=== PATIENT | female | born 1965 | race American Indian/Alaskan Native ===

== ENCOUNTER 2017-04-24 11:36 | Emergency (ER) | payer BC ==
[2017-04-24 11:44] VITALS: BP 166/97
[2017-04-24] MEDS ORDERED: MOTRIN PO ONE (13:47)
--- NOTE | 2017-04-24 14:01 | Emergency Department Report ---
ED Fall HPI - General Chief Complaint: Fall Stated Complaint: FALL Time Seen by Provider: 04/24/17 12:02 Source: patient Mode of arrival: Ambulatory - History of Present Illness Initial Comments: This is a 51-year-old obese female nontoxic, well nourished in appearance, no acute signs of distress presents to the ED with c/o of fall from standstill this morning around 9 AM. Patient stated she was walking outside and tripped over the rock and landed on the right side of her body. Patient stated she landed on her right shoulder, arm, and tried to break a fall with her bilateral wrist and hand. Patient stated she also hit her right upper rib region on the rock and describes pain as aching with level of8/10. Patient stated has low back and cervical spinal pain. Patient denies any head trauma or LOC. Denies syncope. Denies any abdominal pain, nausea, vomiting, chest pain, bladder or bowel instability, shortness of breathe, difficulty breaking, headache, stiff neck, blurry vision, numbness or tingling. Denies any allergies or PMH besides hypertension. MD Complaint: fall -: This morning Fall From: standing When Fall Occurred: 4-6 hours [employer] Fall Witnessed: yes, by family () Place Fall Occurred: street Loss of Consciousness: none Prolonged Down Time?: no Symptoms Prior to Fall: none Severity: mild Severity scale (0 -10): 8 Quality: aching Context: tripped/slipped Associated Symptoms: neck pain. denies: headache, numbness, weakness, chest paint, shortness of breath, abdominal pain, hematuria, unable to walk, lightheaded, vertigo, confusion - Related Data Previous Rx's Medication Instructions Recorded Last Taken Type Ibuprofen [Motrin] 600 mg PO Q8H PRN #30 tablet 04/24/17 Unknown Rx Allergies Allergy/AdvReac Type Severity Reaction Status Date / Time No Known Allergies Allergy Unverified 04/24/17 11:39 ED Review of Systems ROS: Stated complaint: FALL Other details as noted in HPI Constitutional: denies: chills, fever Eyes: denies: eye pain, eye discharge, vision change ENT: denies: ear pain, throat pain Respiratory: denies: cough, shortness of breath, wheezing Cardiovascular: denies: chest pain, palpitations Endocrine: no symptoms reported Gastrointestinal: denies: abdominal pain, nausea, diarrhea Genitourinary: denies: urgency, dysuria, discharge Musculoskeletal: back pain, arthralgia. denies: joint swelling Skin: denies: rash, lesions Neurological: denies: headache, weakness, paresthesias Psychiatric: denies: anxiety, depression Hematological/Lymphatic: denies: easy bleeding, easy bruising ED Past Medical Hx - Past Medical History Previous Medical History?: Yes Hx Hypertension: Yes - Surgical History Past Surgical History?: No - Social History Smoking Status: Never Smoker Substance Use Type: Alcohol - Medications Home Medications: Home Medications Medication Instructions Recorded Confirmed Last Taken Type Ibuprofen [Motrin] 600 mg PO Q8H PRN #30 tablet 04/24/17 Unknown Rx ED Physical Exam - General Limitations: No Limitations General appearance: alert, in no apparent distress - Head Head exam: Present: atraumatic, normocephalic, normal inspection - Eye Eye exam: Present: normal appearance, PERRL, EOMI. Absent: scleral icterus, conjunctival injection, nystagmus, periorbital swelling, periorbital tenderness Pupils: Present: normal accommodation - ENT ENT exam: Present: normal exam, normal orophraynx, mucous membranes moist, TM's normal bilaterally, normal external ear exam - Neck Neck exam: Present: normal inspection, full ROM. Absent: tenderness, meningismus, lymphadenopathy, thyromegaly - Respiratory Respiratory exam: Present: normal lung sounds bilaterally, chest wall tenderness (right lateral upper rib region). Absent: respiratory distress, wheezes, rales, rhonchi, stridor, accessory muscle use, decreased breath sounds , prolonged expiratory - Cardiovascular Cardiovascular Exam: Present: regular rate, normal rhythm, normal heart sounds. Absent: bradycardia, tachycardia, irregular rhythm, systolic murmur, diastolic murmur, rubs, gallop - GI/Abdominal GI/Abdominal exam: Present: soft, normal bowel sounds. Absent: distended, tenderness, guarding, rebound, rigid, diminished bowel sounds, organomegaly ( liver/spleen) - Rectal Rectal exam: Present: deferred - Extremities Exam Extremities exam: Present: normal inspection, full ROM, tenderness, normal capillary refill. Absent: pedal edema, joint swelling, calf tenderness - Expanded Upper Extremity Exam Right General: Present: normal inspection Shoulder Exam: Present: normal inspection, full ROM, tenderness. Absent: swelling, abrasion, laceration, ecchymosis, deformity, crepidus, dislocation, erythema, tenderness over AC joint Upper Arm exam: Present: normal inspection, full ROM, tenderness, ecchymosis. Absent: swelling, abrasion, laceration, deformity, crepidus, dislocation, erythema Elbow exam: Present: normal inspection, full ROM, tenderness, ecchymosis. Absent: swelling, abrasion, laceration, deformity, crepidus, dislocation, erythema, effusion, pain w/ pronation/supination, tenderness over radial head Forearm Wrist exam: Present: normal inspection, full ROM, tenderness, ecchymosis. Absent: swelling, abrasion, laceration, deformity, crepidus, dislocation, erythema, tenderness over anatomical snuff box, pain with axial thumb loading Hand Wrist exam: Present: normal inspection, full ROM, tenderness. Absent: swelling, abrasion, laceration, ecchymosis, deformity, crepidus, dislocation, erythema, amputation, nail avulsion, subungual hematoma Neuro motor exam: Present: wrist extension intact, thumb opposition intact, thumb IP flexion intact, thumb adduction intact, fingers 2-5 abduction intact Neurosensory exam: Present: 2-point discrimination, radial nerve intact, ulnar nerve intact, median nerve intact Vascular: Present: vascular compromise, normal capillary refill, radial pulse, brachial pulse, ulnar pulse - Expanded Lower Extremity Exam Right Hip exam: Present: normal inspection, full ROM, tenderness, ecchymosis, external rotation, internal rotation, pelvic stability. Absent: swelling, abrasion, laceration, deformity, crepidus, dislocation, erythema, shortening Upper Leg exam: Present: normal inspection, full ROM. Absent: tenderness, swelling, abrasion, laceration, ecchymosis, deformity, crepidus, dislocation, erythema Knee exam: Present: normal inspection, full ROM, full knee extension. Absent: tenderness, swelling, abrasion, laceration, ecchymosis, deformity, crepidus, dislocation, erythema, effusion, pain w/ pronation/supination, posterior draw sign, pain/laxity with valgus, pain/laxity with varus Lower Leg exam: Present: normal inspection, full ROM. Absent: tenderness, swelling, abrasion, laceration, ecchymosis, deformity, crepidus, dislocation, erythema, palpable cord, Manish's sign Ankle exam: Present: normal inspection, full ROM. Absent: tenderness, swelling , abrasion, laceration, ecchymosis, deformity, crepidus, dislocation, erythema, anterior draw sign Foot/Toe exam: Present: normal inspection, full ROM. Absent: tenderness, swelling, abrasion, laceration, ecchymosis, deformity, crepidus, dislocation, erythema, amputation, puncture wound, foreign body, calcaneal tenderness, tenderness at base of 5th metatarsal, nail avulsion, subungual hematoma Neuro vascular tendon exam: Present: no vascular compromise. Absent: pulse deficit, abnormal cap refill, motor deficit, sensory deficit, tendon deficit, extremity cold to touch, pallor, abnormal 2-point discrimination, decreased fine /light touch, foot drop, peroneal nerve deficit, significant pain with passive ROM of distal joint Gait: Positive: observed and limited by pain - Back Exam Back exam: Present: normal inspection, full ROM, paraspinal tenderness ( cerivcal and lumbar), vertebral tenderness (cerivcal and lumbar). Absent: CVA tenderness (R), CVA tenderness (L), muscle spasm, rash noted - Expanded Back Exam Expanded Back exam: Present: normal rectal tone (as per patient). Absent: saddle anesthesia Back exam: Negative Straight Leg Raising: Left, Right - Neurological Exam Neurological exam: Present: alert, oriented X3 - Psychiatric Psychiatric exam: Present: normal affect, normal mood - Skin Skin exam: Present: warm, dry, intact, normal color. Absent: rash - Other Other exam information: No bladder or bowel instability. No joint swelling or redness. No deformity. No numbness, no tingling. No abdominal distention. ED Course Vital Signs 04/24/17 11:39 Temperature 98.4 F Pulse Rate 66 Respiratory 20 Rate Blood Pressure 166/97 O2 Sat by Pulse 100 Oximetry - Reevaluation(s) Reevaluation #1: 04/24/17 14:05 Patient is speaking in full sentences with no signs of distress noted. ED Medical Decision Making - Medical Decision Making This is a 51-year-old female that presents with multiple complaints of fall. Patient is stable and was examined by me. Multiple xrays and CT obtained and dictated by radiologist with normal exam besides enlarged thyroid. Upon examination there is no spleen/liver tenderness. No abdominal pain or tenderness or ecchymosis present. Patient was notified of imaging results with no questionable by the patient. Patient was instructed Follow-up with a primary care doctor in 3-5 days or if symptoms worsen and continue return to emergency room as soon as possible. At time time of discharge, the patient does not seem toxic or ill in appearance. No acute signs of distress noted. Patient agrees to discharge treatment plan of care. No further questions noted by the patient. Critical care attestation.: If time is entered above; I have spent that time in minutes in the direct care of this critically ill patient, excluding procedure time. ED Disposition Clinical Impression: Fall Qualifiers: Encounter type: initial encounter Qualified Code(s): W19.XXXA - Unspecified fall, initial encounter Disposition: TO HOME OR SELFCARE Is pt being admited?: No Does the pt Need Aspirin: No Condition: Stable Instructions: Ibuprofen (By mouth), RICE Therapy (ED), Fall Prevention (ED) Additional Instructions: Follow-up with a primary care doctor in 3-5 days for your abnormal CT findings with enlarged thyroid or if symptoms worsen and continue return to emergency room as soon as possible. Rest, elevate, ice extremities Prescriptions: Ibuprofen [Motrin] 600 mg PO Q8H PRN #30 tablet PRN Reason: Pain Referrals: PRIMARY CARE, [Primary Care Provider] - 3-5 Days MAYI DUDLEY MD [Staff Physician] - 3-5 Days VICTOR M FAIR MD [Staff Physician] - 3-5 Days [facility] [Outside] - 3-5 Days [facility] [Outside] - 3-5 Days Forms: Work/School Release Form(ED)
--- NOTE | 2017-04-24 15:25 | Cat Scan Report ---
FINAL REPORT EXAM: CT CHEST WO CON HISTORY: fall r/o rib fracture TECHNIQUE: CT imaging obtained through the chest without contrast. Transaxial, Coronal and sagittal reformats are provided. PRIORS: None. FINDINGS: Mediastinum is unremarkable. Thoracic aorta is normal in course and caliber. No pneumothorax, effusion or focal airspace disease. Right posterior medial atelectasis/scarring. The central airways are patent. No bronchiectasis. Imaged portion of the upper abdomen is unremarkable. Prominent thyroid gland is suggested. The superficial soft tissues are unremarkable. No acute bony abnormality or worrisome osseous lesions identified. IMPRESSION: No acute/traumatic thoracic findings. No fractures. Prominent thyroid gland. Consider follow-up ultrasound if not previously performed.
--- NOTE | 2017-04-24 15:29 | Cat Scan Report ---
FINAL REPORT EXAM: CT CERVICAL SPINE WO CON HISTORY: fall r/o rib fracture TECHNIQUE: CT imaging is acquired through the cervical spine without contrast. Transaxial, coronal and sagittal reformations are provided. PRIORS: None. FINDINGS: There straightening of the cervical spine with reversal of cervical lordosis centered at C4-C5. Mild diffuse intervertebral disc space narrowing at C3-C4 through C7-T1 with associated endplate spondylosis and remodeling. The cervical spine appears intact and vertebral body heights are otherwise preserved. No acute fracture or listhesis. Atlanto-dens interval and odontoid process are intact. No perivertebral soft tissue swelling or hematoma identified. Limited soft tissue exam of the visualized neck is remarkable for a prominent thyroid gland. IMPRESSION: No acute cervical spine fracture identified. Correlate with physical exam and follow up as warranted. Prominence of the thyroid gland. Consider routine ultrasound follow-up.
--- NOTE | 2017-04-24 15:30 | XRay Report ---
FINAL REPORT EXAM: XR SPINE LUMBOSACRAL 2-3V HISTORY: fall, pain TECHNIQUE: 3 views lumbar spine PRIORS: None. FINDINGS: Rightward convexity of the lumbar spine centered at L3 may be positional or chronic in nature. Lumbar lordosis is intact. Mild intervertebral disc space narrowing at L1-L2 and L2-L3 with associated endplate spondylosis. Vertebral body heights and intervertebral disc spaces are preserved. No listhesis, spondylolysis or other fracture. IMPRESSION: No acute lumbar spine findings. Consider additional imaging for worsening/persistent symptoms.
--- NOTE | 2017-04-24 15:31 | XRay Report ---
FINAL REPORT EXAM: XR HIP 2-3V RT HISTORY: fall COMPARISONS: None. FINDINGS: AP view of the pelvis with frog-leg lateral view of the right hip The right hip joint is intact. Hip joint spaces are symmetric and preserved. No displaced pelvic fracture identified. Mild diffuse pelvic enthesopathy. Mild degenerative findings involving the sacroiliac joints and pubic symphysis. IMPRESSION: Intact right hip joint. No displaced pelvic fracture. Consider additional imaging for worsening/persistent symptoms.
--- NOTE | 2017-04-24 15:33 | XRay Report ---
FINAL REPORT EXAM: XR SHOULDER 2+V RT HISTORY: fall COMPARISONS: None. FINDINGS: Three views right shoulder Right glenohumeral joint appears intact. Mild acromioclavicular osteoarthrosis. Acromioclavicular and coracoclavicular intervals are within normal limits. No displaced fractures. Incomplete evaluation of the adjacent right lung is unremarkable. IMPRESSION: No acute right shoulder findings.
--- NOTE | 2017-04-24 15:34 | XRay Report ---
FINAL REPORT EXAM: XR WRIST BILAT 3+V HISTORY: fall COMPARISONS: None. FINDINGS: Four views of both wrists No bone lesion, periosteal reaction, or fracture. No deformity or gross malalignment. IMPRESSION: No fracture or gross malalignment involving either wrist.
--- NOTE | 2017-04-24 15:35 | XRay Report ---
FINAL REPORT EXAM: XR FOREARM RT HISTORY: fall COMPARISONS: None. FINDINGS: AP and lateral views right forearm The right radius and ulna appear intact. There is mild hypertrophy at the coronoid process and sublime tubercle of the ulna, which may be secondary to chronic tug lesions or mild degenerative osteoarthrosis. No fracture or elbow joint effusion is appreciated. IMPRESSION: No acute right forearm findings.
--- NOTE | 2017-04-24 15:37 | XRay Report ---
FINAL REPORT EXAM: XR HAND BILAT 3+V HISTORY: fall COMPARISONS: None. FINDINGS: Three views of both hands No bone lesion, periosteal reaction, or fracture. No deformity or gross malalignment. No significant joint space abnormalities. IMPRESSION: No acute finding in either hand.
== END 2017-04-24 16:39 | disposition home or self-care (01) ==
LOC: ED 11:36
DX: M25.511 Pain in right shoulder (principal); M54.5 Low back pain; M54.2 Cervicalgia; W01.0XXA Fall on same level from slipping, tripping and stumbling without subsequent striking against object, initial encounter; Y93.01 Activity, walking, marching and hiking; Y99.8 Other external cause status; Y92.89 Other specified places as the place of occurrence of the external cause
CPT/HCPCS: 71250; 72100; 72125

== ENCOUNTER 2017-11-04 11:10 | Outpatient (CLI) | payer BC ==
--- NOTE | 2017-11-07 11:15 | Mammography Report ---
BILATERAL DIGITAL SCREENING MAMMOGRAM with CAD: 11/04/17 11:10:00 CLINICAL: Routine screening. COMPARISON:03/25/16 FINDINGS: The breasts are heterogeneously dense, which may obscure small masses. No mass, architectural distortion or suspicious calcifications. IMPRESSION: No mammographic evidence of malignancy. BI-RADS CATEGORY: 1 - - Negative RECOMMENDATION: Routine mammographic screening in one year. COMMENT: Patient follow-up letters are generated by our [employer] application.
== END 2017-11-04 11:11 | disposition home or self-care (01) ==
LOC: SPVWC 11:10
PROVIDERS: ATTEND Obstetrics & Gynecology
DX: Z12.31 Encounter for screening mammogram for malignant neoplasm of breast (principal)
CPT/HCPCS: 77067